=== PATIENT | male | born 1970 | race African-American/Black ===

== ENCOUNTER 2021-12-10 10:01 | Inpatient (IN) | payer OTHER ==
[2021-12-09 19:09] VITALS: BMI 32.0
[2021-12-09] MEDS: diazePAM 5 MG TABLET PO SCH (23:17)
[2021-12-09] MEDS: THIAMINE HCL 100 MG TABLET (FP) PO SCH (23:17)
[2021-12-10] MEDS: diazePAM 5 MG TABLET PO SCH ×4 (06:27→22:23)
[~2021-12-10 10:01] MED LIST: ACETAMINOPHEN 325 MG TABLET (FP) PO PRN; BENZOCAINE/MENTHOL (CHLORASEPTIC ) LOZENGE MM PRN; BISMUTH SUBSALICYLATE 524 MG/30 ML PO PRN; DICYCLOMINE HCL 10 MG CAPSULE PO PRN; IBUPROFEN 400 MG TABLET (FP) PO PRN; LOPERAMIDE HCL 2 MG CAPSULE PO PRN; MAG HYDROX/AL HYDROX/SIMETH 30 ML UNIT-DOSE CUP PO PRN; MAGNESIUM CITRATE 300 ML BOTTLE PO PRN; MAGNESIUM HYDROX 2400MG/30ML ORAL SUSPENSION 30 ML CUP PO PRN; ONDANSETRON *ODT* 4 MG TABLET SL PRN; diazePAM 5 MG TABLET ONE; diazePAM 5 MG TABLET PO ONE; diazePAM 5 MG TABLET PO PRN
[2021-12-10 11:10] LABS: ALBUMIN 3.3 g/dl (3.4-5.0); BLOOD UREA NITROGEN 12.9 mg/dL (7-18); CALCIUM 9.2 mg/dL (8.5-10.1)
[2021-12-10 11:13] LABS: CREATININE 1.2 mg/dL (0.55-1.3)
[2021-12-10 11:14] LABS: TOT PROT 6.6 g/dl (6.4-8.2)
[2021-12-10 11:15] LABS: BILIRUBIN,TOTAL 0.5 mg/dL (0.2-1); HEMATOCRIT 41.2 % (35.4-49); HEMOGLOBIN 13.7 GM/dL (11.7-16.9); MCH 25.7 pg (25.7-33.7); MCHC 33.4 g/dl (32.0-35.9); MEAN CELL VOLUME 76.9 fl (80-96); MEAN PLT VOLUME 8.1 fl (7.5-11.1); PLATELET COUNT 128 10^3/uL (134-434); RBC 5.36 M/mm3 (4.00-5.60); RDW 14.4 % (11.9-15.9); WHITE BLOOD COUNT 2.1 K/mm3 (4.0-10.0)
[2021-12-10] MEDS: FAMOTIDINE 20 MG TABLET PO SCH (12:11)
[2021-12-10] MEDS: amLODIPine BESYLATE 10 MG TABLET (FP) PO SCH (12:11)
[2021-12-10] MEDS: GABAPENTIN 300 MG CAPSULE PO SCH (12:12)
[2021-12-10] MEDS: SULFAMETHOXAZOLE/TRIMETHOPRIM 800MG/160MG D.S. TABLET PO SCH (12:12)
[2021-12-10] MEDS: APIXABAN 5 MG TABLET PO SCH ×2 (12:12→22:24)
[2021-12-10] MEDS: BICTEGRAV/EMTRICIT/TENOFOV (BIKTARVY) 50-200-25 MG TABLET PO SCH (12:12)
[2021-12-10] MEDS: PRENATAL VITAMINS W/ FOLIC ACID TABLET (FP) PO SCH (12:13)
[2021-12-10] MEDS: FENOFIBRIC ACID 135 MG CAP PO SCH (13:59)
[2021-12-10] MEDS: predniSONE 5 MG TABLET (UD) PO SCH (13:59)
[2021-12-10] MEDS ORDERED: POTASSIUM CHLORIDE TABS 20 MEQ TABLET.ER (FP) PO ONE (16:49)
[2021-12-10] MEDS: THIAMINE HCL 100 MG TABLET (FP) PO SCH (22:22)
[2021-12-10] MEDS: MELATONIN 5 MG TABLETS PO PRN (22:22)
[2021-12-10] MEDS: hydrOXYzine PAMOATE 25 MG CAPSULE (FP) PO PRN (22:26)
[2021-12-11] MEDS: LEVOTHYROXINE NA 100 MCG TABLET (FP) PO SCH (06:13)
[2021-12-11] MEDS: diazePAM 5 MG TABLET PO SCH ×3 (06:13→22:19)
[2021-12-11] MEDS: BICTEGRAV/EMTRICIT/TENOFOV (BIKTARVY) 50-200-25 MG TABLET PO SCH (10:44)
[2021-12-11] MEDS: FAMOTIDINE 20 MG TABLET PO SCH (10:44)
[2021-12-11] MEDS: APIXABAN 5 MG TABLET PO SCH ×2 (10:44→22:19)
[2021-12-11] MEDS: PRENATAL VITAMINS W/ FOLIC ACID TABLET (FP) PO SCH (10:44)
[2021-12-11] MEDS: SULFAMETHOXAZOLE/TRIMETHOPRIM 800MG/160MG D.S. TABLET PO SCH (10:44)
[2021-12-11] MEDS: amLODIPine BESYLATE 10 MG TABLET (FP) PO SCH (10:45)
[2021-12-11] MEDS: FENOFIBRIC ACID 135 MG CAP PO SCH (10:45)
[2021-12-11] MEDS: predniSONE 5 MG TABLET (UD) PO SCH (10:45)
[2021-12-11] MEDS: GABAPENTIN 300 MG CAPSULE PO SCH (11:23)
[2021-12-11] MEDS ORDERED: POTASSIUM CHLORIDE ORAL LIQUID 20 MEQ/15 ML PO ONE (12:21)
[2021-12-11] MEDS: THIAMINE HCL 100 MG TABLET (FP) PO SCH (22:18)
[2021-12-11] MEDS: POTASSIUM CHLORIDE ORAL LIQUID 20 MEQ/15 ML PO SCH (22:19)
[2021-12-11] MEDS: MELATONIN 5 MG TABLETS PO PRN (22:20)
[2021-12-11] MEDS: hydrOXYzine PAMOATE 25 MG CAPSULE (FP) PO PRN (22:20)
[2021-12-12] MEDS: LEVOTHYROXINE NA 100 MCG TABLET (FP) PO SCH (05:16)
[2021-12-12] MEDS: diazePAM 5 MG TABLET PO SCH ×2 (05:16→17:08)
[2021-12-12] MEDS: FAMOTIDINE 20 MG TABLET PO SCH (10:22)
[2021-12-12] MEDS: POTASSIUM CHLORIDE ORAL LIQUID 20 MEQ/15 ML PO SCH ×2 (10:22→23:11)
[2021-12-12] MEDS: PRENATAL VITAMINS W/ FOLIC ACID TABLET (FP) PO SCH (10:22)
[2021-12-12] MEDS: predniSONE 5 MG TABLET (UD) PO SCH (10:22)
[2021-12-12] MEDS: BICTEGRAV/EMTRICIT/TENOFOV (BIKTARVY) 50-200-25 MG TABLET PO SCH (10:22)
[2021-12-12] MEDS: GABAPENTIN 300 MG CAPSULE PO SCH (10:22)
[2021-12-12] MEDS: APIXABAN 5 MG TABLET PO SCH ×2 (10:22→22:29)
[2021-12-12] MEDS: amLODIPine BESYLATE 10 MG TABLET (FP) PO SCH (10:22)
[2021-12-12] MEDS: SULFAMETHOXAZOLE/TRIMETHOPRIM 800MG/160MG D.S. TABLET PO SCH (10:22)
[2021-12-12] MEDS: hydrOXYzine PAMOATE 25 MG CAPSULE (FP) PO PRN (10:23)
[2021-12-12] MEDS: METHOCARBAMOL 500 MG TABLET PO PRN (10:23)
[2021-12-12] MEDS: FENOFIBRIC ACID 135 MG CAP PO SCH (10:23)
[2021-12-12] MEDS ORDERED: traZODone HCL 50 MG TABLET (FP) PO SCH (22:00)
[2021-12-12] MEDS ORDERED: QUEtiapine FUMARATE 50 MG TABLET PO SCH (22:00)
[2021-12-12] MEDS: THIAMINE HCL 100 MG TABLET (FP) PO SCH (22:30)
[2021-12-13] MEDS: LEVOTHYROXINE NA 100 MCG TABLET (FP) PO SCH (05:43)
[2021-12-13] MEDS ORDERED: diazePAM 5 MG TABLET PO ONE (06:00)
[2021-12-13 08:58] VITALS: BP 161/101; PULSE 110; TEMP 98
[2021-12-13] MEDS: APIXABAN 5 MG TABLET PO SCH (10:14)
[2021-12-13] MEDS: predniSONE 5 MG TABLET (UD) PO SCH (10:14)
[2021-12-13] MEDS: PRENATAL VITAMINS W/ FOLIC ACID TABLET (FP) PO SCH (10:14)
[2021-12-13] MEDS: hydrOXYzine PAMOATE 25 MG CAPSULE (FP) PO PRN (10:14)
[2021-12-13] MEDS: BICTEGRAV/EMTRICIT/TENOFOV (BIKTARVY) 50-200-25 MG TABLET PO SCH (10:14)
[2021-12-13] MEDS: amLODIPine BESYLATE 10 MG TABLET (FP) PO SCH (10:14)
[2021-12-13] MEDS: METHOCARBAMOL 500 MG TABLET PO PRN (10:14)
[2021-12-13] MEDS: GABAPENTIN 300 MG CAPSULE PO SCH (10:14)
[2021-12-13] MEDS: FAMOTIDINE 20 MG TABLET PO SCH (10:14)
[2021-12-13] MEDS: SULFAMETHOXAZOLE/TRIMETHOPRIM 800MG/160MG D.S. TABLET PO SCH (10:14)
[2021-12-13] MEDS: FENOFIBRIC ACID 135 MG CAP PO SCH (10:16)
== END 2021-12-13 11:35 | disposition other institution (70) | DRG 773 ==
LOC: YASAS 10:01 → Y6N 10:03
PROVIDERS: ADMIT Allergy & Immunology; ATTEND Surgery
PROC: HZ2ZZZZ Detoxification Services for Substance Abuse Treatment (ICD-10-PCS; principal; 2021-12-10)
DX: F13.20 Sedative, hypnotic or anxiolytic dependence, uncomplicated (principal); F14.20 Cocaine dependence, uncomplicated; F11.10 Opioid abuse, uncomplicated; F17.210 Nicotine dependence, cigarettes, uncomplicated; F31.9 Bipolar disorder, unspecified; F19.282 Other psychoactive substance dependence with psychoactive substance-induced sleep disorder; Z21 Asymptomatic human immunodeficiency virus [HIV] infection status; E78.5 Hyperlipidemia, unspecified; J45.909 Unspecified asthma, uncomplicated; K21.9 Gastro-esophageal reflux disease without esophagitis; E03.9 Hypothyroidism, unspecified; G62.9 Polyneuropathy, unspecified; N40.0 Benign prostatic hyperplasia without lower urinary tract symptoms; Z87.442 Personal history of urinary calculi; Z86.718 Personal history of other venous thrombosis and embolism; Z79.01 Long term (current) use of anticoagulants; Z91.51 Personal history of suicidal behavior
CPT/HCPCS: 36415; 80053; 82947; 84132; 84443; 85027; 86780; C9803-CS; U0003; U0005

== ENCOUNTER 2021-12-13 11:26 | Inpatient (IN) | payer OTHER ==
[2021-12-13] MEDS ORDERED: ACETAMINOPHEN 325 MG TABLET (FP) PO PRN (12:54)
[2021-12-13] MEDS ORDERED: BENZOCAINE/MENTHOL (CHLORASEPTIC ) LOZENGE MM PRN (12:54)
[2021-12-13] MEDS ORDERED: MAGNESIUM HYDROX 2400MG/30ML ORAL SUSPENSION 30 ML CUP PO PRN (12:54)
[2021-12-13] MEDS ORDERED: P-EPHED 60MG/TRIPROLIDI 2.5MG TABLET PO PRN (12:54)
[2021-12-13] MEDS ORDERED: guaiFENesin 200 MG/10 ML 10 ML UNIT-DOSE CUPS PO PRN (12:54)
[2021-12-13] MEDS ORDERED: MAGNESIUM CITRATE 300 ML BOTTLE PO PRN (12:54)
[2021-12-13] MEDS ORDERED: IBUPROFEN 400 MG TABLET (FP) PO PRN (12:54)
[2021-12-13] MEDS ORDERED: hydrOXYzine PAMOATE 25 MG CAPSULE (FP) PO PRN (12:54)
[2021-12-13] MEDS ORDERED: LOPERAMIDE HCL 2 MG CAPSULE PO PRN (12:54)
[2021-12-13] MEDS ORDERED: MAG HYDROX/AL HYDROX/SIMETH 30 ML UNIT-DOSE CUP PO PRN (12:54)
[2021-12-13] MEDS: MELATONIN 5 MG TABLETS PO SCH (21:37)
[2021-12-13] MEDS: THIAMINE HCL 100 MG TABLET (FP) PO SCH (21:37)
[2021-12-13] MEDS: APIXABAN 5 MG TABLET PO SCH (21:38)
[2021-12-13] MEDS: QUEtiapine FUMARATE 50 MG TABLET PO SCH (21:38)
[2021-12-13] MEDS: NICOTINE 10 MG CARTRIDGE (INHALER) IH PRN (21:39)
[2021-12-13] MEDS ORDERED: traZODone HCL 50 MG TABLET (FP) PO SCH (22:00)
[2021-12-14] MEDS: LEVOTHYROXINE NA 100 MCG TABLET (FP) PO SCH (06:21)
[2021-12-14] MEDS: BICTEGRAV/EMTRICIT/TENOFOV (BIKTARVY) 50-200-25 MG TABLET PO SCH (07:09)
[2021-12-14] MEDS: PRENATAL VITAMINS W/ FOLIC ACID TABLET (FP) PO SCH (10:24)
[2021-12-14] MEDS: GABAPENTIN 300 MG CAPSULE PO SCH (10:25)
[2021-12-14] MEDS: APIXABAN 5 MG TABLET PO SCH ×2 (10:25→21:24)
[2021-12-14] MEDS: SULFAMETHOXAZOLE/TRIMETHOPRIM 800MG/160MG D.S. TABLET PO SCH (10:25)
[2021-12-14] MEDS: amLODIPine BESYLATE 5 MG TABLET (FP) PO SCH (10:25)
[2021-12-14] MEDS: FAMOTIDINE 20 MG TABLET PO SCH (10:25)
[2021-12-14] MEDS: predniSONE 5 MG TABLET (UD) PO SCH (10:27)
[2021-12-14] MEDS: FENOFIBRIC ACID 135 MG CAP PO SCH (10:27)
[2021-12-14] MEDS: NICOTINE 7 MG/24 HOURS TOPICAL PATCH TD SCH (10:28)
[2021-12-14 13:52] LABS: BASO % 0.5 % (0-2.0); EOS % 2.3 % (0-4.5); HEMATOCRIT 42.4 % (35.4-49); HEMOGLOBIN 13.9 GM/dL (11.7-16.9); LYMPH % 14.5 % (8-40); MCH 25.5 pg (25.7-33.7); MCHC 32.8 g/dl (32.0-35.9); MEAN CELL VOLUME 77.7 fl (80-96); MEAN PLT VOLUME 8.9 fl (7.5-11.1); MONO % 7.6 % (3.8-10.2); NEUT % 75.1 % (42.8-82.8); PLATELET COUNT 131 10^3/uL (134-434); RBC 5.46 M/mm3 (4.00-5.60); RDW 14.4 % (11.9-15.9); WHITE BLOOD COUNT 5.1 K/mm3 (4.0-10.0)
[2021-12-14] MEDS ORDERED: cloNIDine HCL 0.1 MG TABLET PO PRN (14:54)
[2021-12-14] MEDS: MELATONIN 5 MG TABLETS PO SCH (21:23)
[2021-12-14] MEDS: THIAMINE HCL 100 MG TABLET (FP) PO SCH (21:23)
[2021-12-14] MEDS: QUEtiapine FUMARATE 50 MG TABLET PO SCH (21:24)
[2021-12-15] MEDS: LEVOTHYROXINE NA 100 MCG TABLET (FP) PO SCH (06:19)
[2021-12-15] MEDS: BICTEGRAV/EMTRICIT/TENOFOV (BIKTARVY) 50-200-25 MG TABLET PO SCH (07:16)
[2021-12-15] MEDS: GABAPENTIN 300 MG CAPSULE PO SCH (09:52)
[2021-12-15] MEDS: FAMOTIDINE 20 MG TABLET PO SCH (09:52)
[2021-12-15] MEDS: FENOFIBRIC ACID 135 MG CAP PO SCH (09:52)
[2021-12-15] MEDS: APIXABAN 5 MG TABLET PO SCH ×2 (09:52→21:19)
[2021-12-15] MEDS: PRENATAL VITAMINS W/ FOLIC ACID TABLET (FP) PO SCH (09:52)
[2021-12-15] MEDS: amLODIPine BESYLATE 5 MG TABLET (FP) PO SCH (09:52)
[2021-12-15] MEDS: predniSONE 5 MG TABLET (UD) PO SCH (09:53)
[2021-12-15] MEDS: SULFAMETHOXAZOLE/TRIMETHOPRIM 800MG/160MG D.S. TABLET PO SCH (09:53)
[2021-12-15] MEDS: NICOTINE 7 MG/24 HOURS TOPICAL PATCH TD SCH (09:55)
[2021-12-15] MEDS: MELATONIN 5 MG TABLETS PO SCH (21:18)
[2021-12-15] MEDS: THIAMINE HCL 100 MG TABLET (FP) PO SCH (21:18)
[2021-12-15] MEDS: QUEtiapine FUMARATE 50 MG TABLET PO SCH (21:19)
[2021-12-16] MEDS: LEVOTHYROXINE NA 100 MCG TABLET (FP) PO SCH (06:09)
[2021-12-16] MEDS: BICTEGRAV/EMTRICIT/TENOFOV (BIKTARVY) 50-200-25 MG TABLET PO SCH (08:00)
[2021-12-16] MEDS: NICOTINE 10 MG CARTRIDGE (INHALER) IH PRN (10:06)
[2021-12-16] MEDS: GABAPENTIN 300 MG CAPSULE PO SCH (10:06)
[2021-12-16] MEDS: amLODIPine BESYLATE 5 MG TABLET (FP) PO SCH (10:07)
[2021-12-16] MEDS: FAMOTIDINE 20 MG TABLET PO SCH (10:07)
[2021-12-16] MEDS: NICOTINE 7 MG/24 HOURS TOPICAL PATCH TD SCH (10:07)
[2021-12-16] MEDS: APIXABAN 5 MG TABLET PO SCH ×2 (10:07→21:38)
[2021-12-16] MEDS: SULFAMETHOXAZOLE/TRIMETHOPRIM 800MG/160MG D.S. TABLET PO SCH (10:07)
[2021-12-16] MEDS: predniSONE 5 MG TABLET (UD) PO SCH (10:07)
[2021-12-16] MEDS: PRENATAL VITAMINS W/ FOLIC ACID TABLET (FP) PO SCH (10:08)
[2021-12-16] MEDS: FENOFIBRIC ACID 135 MG CAP PO SCH (10:08)
[2021-12-16] MEDS: QUEtiapine FUMARATE 50 MG TABLET PO SCH (21:38)
[2021-12-16] MEDS: THIAMINE HCL 100 MG TABLET (FP) PO SCH (21:38)
[2021-12-16] MEDS: MELATONIN 5 MG TABLETS PO SCH (21:39)
[2021-12-17] MEDS: LEVOTHYROXINE NA 100 MCG TABLET (FP) PO SCH (06:49)
[2021-12-17] MEDS: BICTEGRAV/EMTRICIT/TENOFOV (BIKTARVY) 50-200-25 MG TABLET PO SCH (10:25)
[2021-12-17] MEDS: SULFAMETHOXAZOLE/TRIMETHOPRIM 800MG/160MG D.S. TABLET PO SCH (10:26)
[2021-12-17] MEDS: predniSONE 5 MG TABLET (UD) PO SCH (10:26)
[2021-12-17] MEDS: FAMOTIDINE 20 MG TABLET PO SCH (10:26)
[2021-12-17] MEDS: GABAPENTIN 300 MG CAPSULE PO SCH (10:26)
[2021-12-17] MEDS: PRENATAL VITAMINS W/ FOLIC ACID TABLET (FP) PO SCH (10:26)
[2021-12-17] MEDS: APIXABAN 5 MG TABLET PO SCH ×2 (10:26→22:32)
[2021-12-17] MEDS: NICOTINE 7 MG/24 HOURS TOPICAL PATCH TD SCH (10:27)
[2021-12-17] MEDS: amLODIPine BESYLATE 5 MG TABLET (FP) PO SCH (10:27)
[2021-12-17] MEDS: FENOFIBRIC ACID 135 MG CAP PO SCH (10:28)
[2021-12-17] MEDS: QUEtiapine FUMARATE 50 MG TABLET PO SCH (22:32)
[2021-12-17] MEDS: MELATONIN 5 MG TABLETS PO SCH (22:34)
[2021-12-17] MEDS: THIAMINE HCL 100 MG TABLET (FP) PO SCH (22:35)
[2021-12-18] MEDS: LEVOTHYROXINE NA 100 MCG TABLET (FP) PO SCH (06:33)
[2021-12-18] MEDS: BICTEGRAV/EMTRICIT/TENOFOV (BIKTARVY) 50-200-25 MG TABLET PO SCH (07:08)
[2021-12-18 07:55] VITALS: TEMP 97.3
[2021-12-18] MEDS: SULFAMETHOXAZOLE/TRIMETHOPRIM 800MG/160MG D.S. TABLET PO SCH (09:09)
[2021-12-18] MEDS: GABAPENTIN 300 MG CAPSULE PO SCH (09:09)
[2021-12-18] MEDS: predniSONE 5 MG TABLET (UD) PO SCH (09:09)
[2021-12-18] MEDS: FAMOTIDINE 20 MG TABLET PO SCH (09:10)
[2021-12-18] MEDS: PRENATAL VITAMINS W/ FOLIC ACID TABLET (FP) PO SCH (09:10)
[2021-12-18] MEDS: NICOTINE 7 MG/24 HOURS TOPICAL PATCH TD SCH (09:10)
[2021-12-18] MEDS: amLODIPine BESYLATE 5 MG TABLET (FP) PO SCH (09:10)
[2021-12-18] MEDS: FENOFIBRIC ACID 135 MG CAP PO SCH (09:11)
[2021-12-18 09:23] VITALS: BP 149/93; PULSE 97
[2021-12-18] MEDS: APIXABAN 5 MG TABLET PO SCH (10:08)
== END 2021-12-18 10:55 | disposition home or self-care (01) | DRG 772 ==
LOC: YASAS 11:26 → Y3E 11:27
PROVIDERS: ADMIT Allergy & Immunology; ATTEND Psychiatry & Neurology Pain Medicine
PROC: HZ42ZZZ Group Counseling for Substance Abuse Treatment, Cognitive-Behavioral (ICD-10-PCS; principal; 2021-12-13)
DX: F11.20 Opioid dependence, uncomplicated (principal); F14.20 Cocaine dependence, uncomplicated; F13.20 Sedative, hypnotic or anxiolytic dependence, uncomplicated; F17.210 Nicotine dependence, cigarettes, uncomplicated; F31.9 Bipolar disorder, unspecified; Z21 Asymptomatic human immunodeficiency virus [HIV] infection status; G62.9 Polyneuropathy, unspecified; D86.9 Sarcoidosis, unspecified; E78.5 Hyperlipidemia, unspecified; E03.9 Hypothyroidism, unspecified; I10 Essential (primary) hypertension; K21.9 Gastro-esophageal reflux disease without esophagitis; N40.0 Benign prostatic hyperplasia without lower urinary tract symptoms; W01.0XXA Fall on same level from slipping, tripping and stumbling without subsequent striking against object, initial encounter; Y92.232 Corridor of hospital as the place of occurrence of the external cause; Z86.718 Personal history of other venous thrombosis and embolism; Z79.01 Long term (current) use of anticoagulants
CPT/HCPCS: 36415; 82962; 85025

== ENCOUNTER 2021-12-17 18:08 | Emergency (ER) | payer OTHER ==
[2021-12-17 18:21] VITALS: TEMP 97.9; BMI 34.0
[2021-12-17] MEDS ORDERED: ACETAMINOPHEN 500 MG TABLET (FP) PO ONE (18:38)
[2021-12-17] MEDS ORDERED: CYCLOBENZAPRINE HCL 10 MG TABLET (FP) PO ONE (18:38)
[2021-12-17] MEDS ORDERED: ACETAMINOPHEN 325 MG TABLET (FP) ONE (18:44)
[2021-12-17] MEDS ORDERED: CYCLOBENZAPRINE HCL 5 MG TABLET ONE (18:45)
[2021-12-17 19:35] VITALS: BP 147/96; PULSE 91
[2021-12-17] MEDS ORDERED: LIDOCAINE 5% TOPICAL PATCH TP ONE (19:38)
[2021-12-17] MEDS ORDERED: LIDOCAINE 5% TOPICAL PATCH ONE (19:40)
[2021-12-18] MEDS ORDERED: LIDOCAINE PATCH REMOVAL MC SCH (08:00)
== END 2021-12-17 21:55 | disposition home or self-care (01) ==
LOC: JER 18:08
DX: M25.551 Pain in right hip (principal); W01.0XXA Fall on same level from slipping, tripping and stumbling without subsequent striking against object, initial encounter
CPT/HCPCS: 70450-TC; 99284-25

== ENCOUNTER 2022-02-07 09:23 | Inpatient (IN) | payer OTHER ==
[2022-02-07 10:01] VITALS: BMI 31.6
[2022-02-07] MEDS ORDERED: BENZOCAINE/MENTHOL (CHLORASEPTIC ) LOZENGE MM PRN (10:44)
[2022-02-07] MEDS ORDERED: LOPERAMIDE HCL 2 MG CAPSULE PO PRN (10:44)
[2022-02-07] MEDS ORDERED: ONDANSETRON *ODT* 4 MG TABLET SL PRN (10:44)
[2022-02-07] MEDS ORDERED: MAGNESIUM CITRATE 300 ML BOTTLE PO PRN (10:44)
[2022-02-07] MEDS ORDERED: BISMUTH SUBSALICYLATE 524 MG/30 ML PO PRN (10:44)
[2022-02-07] MEDS ORDERED: NALOXONE HCL (KLOXXADO) 8 MG SPRAY NS PRN (10:44)
[2022-02-07] MEDS ORDERED: chlordiazePOXIDE HCL 25 MG CAPSULE PO PRN (10:44)
[2022-02-07] MEDS ORDERED: IBUPROFEN 400 MG TABLET (FP) PO PRN (10:44)
[2022-02-07] MEDS ORDERED: NICOTINE 10 MG CARTRIDGE (INHALER) IH PRN (10:44)
[2022-02-07] MEDS ORDERED: DICYCLOMINE HCL 10 MG CAPSULE PO PRN (10:44)
[2022-02-07] MEDS ORDERED: MAG HYDROX/AL HYDROX/SIMETH 30 ML UNIT-DOSE CUP PO PRN (10:44)
[2022-02-07] MEDS ORDERED: MAGNESIUM HYDROX 2400MG/30ML ORAL SUSPENSION 30 ML CUP PO PRN (10:44)
[2022-02-07] MEDS ORDERED: ACETAMINOPHEN 325 MG TABLET (FP) PO PRN ×2 (10:44)
[2022-02-07] MEDS ORDERED: METHOCARBAMOL 500 MG TABLET PO PRN (10:44)
[2022-02-07] MEDS ORDERED: IBUPROFEN 600 MG TABLET (FP) PO PRN (10:44)
[2022-02-07] MEDS ORDERED: LEVOTHYROXINE NA 100 MCG TABLET (FP) PO SCH (11:00)
[2022-02-07] MEDS: PRENATAL VITAMINS W/ FOLIC ACID TABLET (FP) PO SCH (12:49)
[2022-02-07] MEDS: APIXABAN 5 MG TABLET PO SCH ×2 (12:49→22:29)
[2022-02-07] MEDS: SULFAMETHOXAZOLE/TRIMETHOPRIM 800MG/160MG D.S. TABLET PO SCH (12:49)
[2022-02-07] MEDS: FAMOTIDINE 20 MG TABLET PO SCH (12:50)
[2022-02-07] MEDS: BICTEGRAV/EMTRICIT/TENOFOV (BIKTARVY) 50-200-25 MG TABLET PO SCH (12:55)
[2022-02-07] MEDS: amLODIPine BESYLATE 10 MG TABLET (FP) PO SCH (12:57)
[2022-02-07] MEDS ORDERED: LEVOTHYROXINE NA 25 MCG TABLET (FP) PO ONE (13:41)
[2022-02-07] MEDS: predniSONE 5 MG TABLET (UD) PO SCH (14:57)
[2022-02-07] MEDS: hydrOXYzine PAMOATE 25 MG CAPSULE (FP) PO SCH ×3 (15:00→22:30)
[2022-02-07 15:21] LABS: HEMATOCRIT 40.4 % (35.4-49); HEMOGLOBIN 13.2 GM/dL (11.7-16.9); MCHC 32.7 g/dl (32.0-35.9); MEAN CELL VOLUME 76.4 fl (80-96); MEAN PLT VOLUME 8.8 fl (7.5-11.1); PLATELET COUNT 138 10^3/uL (134-434); RBC 5.29 M/mm3 (4.00-5.60); RDW 14.2 % (11.9-15.9); WHITE BLOOD COUNT 6.3 K/mm3 (4.0-10.0)
[2022-02-07 15:29] LABS: CALCIUM 8.6 mg/dL (8.5-10.1)
[2022-02-07 15:30] LABS: ALBUMIN 3.4 g/dl (3.4-5.0); BLOOD UREA NITROGEN 15.3 mg/dL (7-18)
[2022-02-07 15:34] LABS: CREATININE 1.4 mg/dL (0.55-1.3)
[2022-02-07 15:35] LABS: BILIRUBIN,TOTAL 0.9 mg/dL (0.2-1)
[2022-02-07 15:37] LABS: TOT PROT 7.1 g/dl (6.4-8.2)
[2022-02-07] MEDS: chlordiazePOXIDE HCL 25 MG CAPSULE PO SCH ×2 (18:07→22:29)
[2022-02-07] MEDS ORDERED: MELATONIN 5 MG TABLETS PO SCH (22:00)
[2022-02-07] MEDS: QUEtiapine FUMARATE 50 MG TABLET PO SCH (22:29)
[2022-02-07] MEDS: THIAMINE HCL 100 MG TABLET (FP) PO SCH (22:29)
[2022-02-08] MEDS: chlordiazePOXIDE HCL 25 MG CAPSULE PO SCH ×5 (06:40→22:05)
[2022-02-08] MEDS: hydrOXYzine PAMOATE 25 MG CAPSULE (FP) PO SCH ×5 (07:36→22:05)
[2022-02-08] MEDS: LEVOTHYROXINE NA 25 MCG TABLET (FP) PO SCH (07:39)
[2022-02-08] MEDS: BICTEGRAV/EMTRICIT/TENOFOV (BIKTARVY) 50-200-25 MG TABLET PO SCH (07:40)
[2022-02-08] MEDS: APIXABAN 5 MG TABLET PO SCH ×2 (11:13→22:05)
[2022-02-08] MEDS: PRENATAL VITAMINS W/ FOLIC ACID TABLET (FP) PO SCH (11:13)
[2022-02-08] MEDS: FAMOTIDINE 20 MG TABLET PO SCH (11:13)
[2022-02-08] MEDS: SULFAMETHOXAZOLE/TRIMETHOPRIM 800MG/160MG D.S. TABLET PO SCH (11:14)
[2022-02-08] MEDS: amLODIPine BESYLATE 10 MG TABLET (FP) PO SCH (11:14)
[2022-02-08] MEDS: predniSONE 5 MG TABLET (UD) PO SCH (11:14)
[2022-02-08] MEDS: QUEtiapine FUMARATE 50 MG TABLET PO SCH (22:04)
[2022-02-08] MEDS: THIAMINE HCL 100 MG TABLET (FP) PO SCH (22:05)
[2022-02-09] MEDS: LEVOTHYROXINE NA 25 MCG TABLET (FP) PO SCH (06:10)
[2022-02-09] MEDS: chlordiazePOXIDE HCL 25 MG CAPSULE PO SCH ×4 (06:10→22:11)
[2022-02-09] MEDS: hydrOXYzine PAMOATE 25 MG CAPSULE (FP) PO SCH ×5 (06:10→22:11)
[2022-02-09 10:02] LABS: CREATININE 1.1 mg/dL (0.55-1.3)
[2022-02-09] MEDS: APIXABAN 5 MG TABLET PO SCH ×2 (10:18→22:11)
[2022-02-09] MEDS: FAMOTIDINE 20 MG TABLET PO SCH (10:18)
[2022-02-09] MEDS: amLODIPine BESYLATE 10 MG TABLET (FP) PO SCH (10:19)
[2022-02-09] MEDS: SULFAMETHOXAZOLE/TRIMETHOPRIM 800MG/160MG D.S. TABLET PO SCH (10:19)
[2022-02-09] MEDS: predniSONE 5 MG TABLET (UD) PO SCH (10:19)
[2022-02-09] MEDS: BICTEGRAV/EMTRICIT/TENOFOV (BIKTARVY) 50-200-25 MG TABLET PO SCH (10:22)
[2022-02-09] MEDS: PRENATAL VITAMINS W/ FOLIC ACID TABLET (FP) PO SCH (10:23)
[2022-02-09] MEDS: QUEtiapine FUMARATE 50 MG TABLET PO SCH (22:11)
[2022-02-09] MEDS: THIAMINE HCL 100 MG TABLET (FP) PO SCH (22:11)
[2022-02-10] MEDS ORDERED: chlordiazePOXIDE HCL 10 MG CAPSULE PO PRN
[2022-02-10] MEDS: hydrOXYzine PAMOATE 25 MG CAPSULE (FP) PO SCH ×5 (05:23→22:26)
[2022-02-10] MEDS: chlordiazePOXIDE HCL 10 MG CAPSULE PO SCH ×4 (05:23→22:23)
[2022-02-10] MEDS: LEVOTHYROXINE NA 25 MCG TABLET (FP) PO SCH (07:47)
[2022-02-10] MEDS: predniSONE 5 MG TABLET (UD) PO SCH (10:18)
[2022-02-10] MEDS: APIXABAN 5 MG TABLET PO SCH ×2 (10:18→22:23)
[2022-02-10] MEDS: BICTEGRAV/EMTRICIT/TENOFOV (BIKTARVY) 50-200-25 MG TABLET PO SCH (10:18)
[2022-02-10] MEDS: SULFAMETHOXAZOLE/TRIMETHOPRIM 800MG/160MG D.S. TABLET PO SCH (10:18)
[2022-02-10] MEDS: FAMOTIDINE 20 MG TABLET PO SCH (10:18)
[2022-02-10] MEDS: amLODIPine BESYLATE 10 MG TABLET (FP) PO SCH (10:18)
[2022-02-10] MEDS: PRENATAL VITAMINS W/ FOLIC ACID TABLET (FP) PO SCH (10:19)
[2022-02-10] MEDS: THIAMINE HCL 100 MG TABLET (FP) PO SCH (22:23)
[2022-02-10] MEDS: QUEtiapine FUMARATE 50 MG TABLET PO SCH (22:23)
[2022-02-11] MEDS: hydrOXYzine PAMOATE 25 MG CAPSULE (FP) PO SCH ×5 (05:23→22:12)
[2022-02-11] MEDS: chlordiazePOXIDE HCL 10 MG CAPSULE PO SCH ×2 (05:23→17:53)
[2022-02-11] MEDS: BICTEGRAV/EMTRICIT/TENOFOV (BIKTARVY) 50-200-25 MG TABLET PO SCH (08:06)
[2022-02-11] MEDS: LEVOTHYROXINE NA 25 MCG TABLET (FP) PO SCH (08:06)
[2022-02-11] MEDS: SULFAMETHOXAZOLE/TRIMETHOPRIM 800MG/160MG D.S. TABLET PO SCH (10:24)
[2022-02-11] MEDS: FAMOTIDINE 20 MG TABLET PO SCH (10:24)
[2022-02-11] MEDS: amLODIPine BESYLATE 10 MG TABLET (FP) PO SCH (10:24)
[2022-02-11] MEDS: predniSONE 5 MG TABLET (UD) PO SCH (10:25)
[2022-02-11] MEDS: PRENATAL VITAMINS W/ FOLIC ACID TABLET (FP) PO SCH (10:25)
[2022-02-11] MEDS: APIXABAN 5 MG TABLET PO SCH ×2 (10:25→22:12)
[2022-02-11] MEDS ORDERED: QUEtiapine FUMARATE 25 MG TABLET ONE (21:46)
[2022-02-11] MEDS: THIAMINE HCL 100 MG TABLET (FP) PO SCH (22:12)
[2022-02-11] MEDS: QUEtiapine FUMARATE 50 MG TABLET PO SCH (22:12)
[2022-02-12] MEDS ORDERED: chlordiazePOXIDE HCL 10 MG CAPSULE PO ONE (05:00)
[2022-02-12] MEDS: hydrOXYzine PAMOATE 25 MG CAPSULE (FP) PO SCH ×2 (05:29→10:31)
[2022-02-12] MEDS: LEVOTHYROXINE NA 25 MCG TABLET (FP) PO SCH (06:12)
[2022-02-12 09:21] VITALS: BP 162/83; PULSE 98; RESP 18; TEMP 97.4
[2022-02-12] MEDS: SULFAMETHOXAZOLE/TRIMETHOPRIM 800MG/160MG D.S. TABLET PO SCH (10:31)
[2022-02-12] MEDS: PRENATAL VITAMINS W/ FOLIC ACID TABLET (FP) PO SCH (10:31)
[2022-02-12] MEDS: FAMOTIDINE 20 MG TABLET PO SCH (10:31)
[2022-02-12] MEDS: predniSONE 5 MG TABLET (UD) PO SCH (10:31)
[2022-02-12] MEDS: BICTEGRAV/EMTRICIT/TENOFOV (BIKTARVY) 50-200-25 MG TABLET PO SCH (10:32)
[2022-02-12] MEDS: APIXABAN 5 MG TABLET PO SCH (11:39)
[2022-02-12] MEDS: amLODIPine BESYLATE 10 MG TABLET (FP) PO SCH (11:39)
== END 2022-02-12 12:16 | disposition home or self-care (01) | DRG 774 ==
LOC: YASAS 09:23 → SUATTDRO 09:23 → Y6N 11:30
PROVIDERS: ADMIT Allergy & Immunology; ATTEND Surgery
PROC: HZ2ZZZZ Detoxification Services for Substance Abuse Treatment (ICD-10-PCS; principal; 2022-02-07)
DX: F13.230 Sedative, hypnotic or anxiolytic dependence with withdrawal, uncomplicated (principal); F14.20 Cocaine dependence, uncomplicated; F17.210 Nicotine dependence, cigarettes, uncomplicated; F31.9 Bipolar disorder, unspecified; F19.24 Other psychoactive substance dependence with psychoactive substance-induced mood disorder; F19.282 Other psychoactive substance dependence with psychoactive substance-induced sleep disorder; I10 Essential (primary) hypertension; J45.909 Unspecified asthma, uncomplicated; K21.9 Gastro-esophageal reflux disease without esophagitis; Z21 Asymptomatic human immunodeficiency virus [HIV] infection status; E03.9 Hypothyroidism, unspecified; G62.9 Polyneuropathy, unspecified; D86.9 Sarcoidosis, unspecified; E78.5 Hyperlipidemia, unspecified; N40.0 Benign prostatic hyperplasia without lower urinary tract symptoms; Z28.310 Unvaccinated for COVID-19; Z91.51 Personal history of suicidal behavior; Z86.718 Personal history of other venous thrombosis and embolism; Z56.0 Unemployment, unspecified; Z59.01 Sheltered homelessness
CPT/HCPCS: 36415; 80053; 82565; 85027; 86780; 87811; 93005; 93010; C9803-CS; U0003; U0005

== ENCOUNTER 2022-03-21 10:09 | Inpatient (IN) | payer OTHER ==
[2022-03-21 10:52] VITALS: BMI 32.1
[2022-03-21] MEDS ORDERED: MAGNESIUM CITRATE 300 ML BOTTLE PO PRN (11:30)
[2022-03-21] MEDS ORDERED: BISMUTH SUBSALICYLATE 524 MG/30 ML PO PRN (11:30)
[2022-03-21] MEDS ORDERED: BUPRENORPHINE HCL 150 MCG, BUPRENORPHINE HCL 75 MCG BC PRN (11:30)
[2022-03-21] MEDS ORDERED: BENZOCAINE/MENTHOL (CHLORASEPTIC ) LOZENGE MM PRN (11:30)
[2022-03-21] MEDS ORDERED: IBUPROFEN 400 MG TABLET (FP) PO PRN (11:30)
[2022-03-21] MEDS ORDERED: IBUPROFEN 600 MG TABLET (FP) PO PRN (11:30)
[2022-03-21] MEDS ORDERED: LOPERAMIDE HCL 2 MG CAPSULE PO PRN (11:30)
[2022-03-21] MEDS ORDERED: diazePAM 5 MG TABLET PO PRN (11:30)
[2022-03-21] MEDS ORDERED: DICYCLOMINE HCL 10 MG CAPSULE PO PRN (11:30)
[2022-03-21] MEDS ORDERED: MAG HYDROX/AL HYDROX/SIMETH 30 ML UNIT-DOSE CUP PO PRN (11:30)
[2022-03-21] MEDS ORDERED: MAGNESIUM HYDROX 2400MG/30ML ORAL SUSPENSION 30 ML CUP PO PRN (11:30)
[2022-03-21] MEDS ORDERED: ONDANSETRON *ODT* 4 MG TABLET SL PRN (11:30)
[2022-03-21] MEDS ORDERED: ACETAMINOPHEN 325 MG TABLET (FP) PO PRN ×2 (11:30)
[2022-03-21] MEDS ORDERED: NALOXONE HCL (KLOXXADO) 8 MG SPRAY NS PRN (11:30)
[2022-03-21] MEDS ORDERED: BUPRENORPHINE HCL 150 MCG, BUPRENORPHINE HCL 75 MCG BC ONE (11:45)
[2022-03-21] MEDS ORDERED: cloNIDine HCL 0.1 MG TABLET PO ONE (12:00)
[2022-03-21] MEDS ORDERED: cloNIDine HCL 0.1 MG TABLET PO PRN (15:31)
[2022-03-21 17:00] LABS: CALCIUM 9.5 mg/dL (8.5-10.1)
[2022-03-21 17:01] LABS: ALBUMIN 4.1 g/dl (3.4-5.0); BLOOD UREA NITROGEN 21.2 mg/dL (7-18)
[2022-03-21 17:04] LABS: CREATININE 1.8 mg/dL (0.55-1.3)
[2022-03-21 17:05] LABS: HEMATOCRIT 42.7 % (35.4-49); HEMOGLOBIN 14.2 GM/dL (11.7-16.9); MCH 25.3 pg (25.7-33.7); MCHC 33.2 g/dl (32.0-35.9); MEAN CELL VOLUME 76.2 fl (80-96); MEAN PLT VOLUME 8.4 fl (7.5-11.1); PLATELET COUNT 144 10^3/uL (134-434); RDW 14.9 % (11.9-15.9); WHITE BLOOD COUNT 5.3 K/mm3 (4.0-10.0)
[2022-03-21] MEDS: hydrOXYzine PAMOATE 25 MG CAPSULE (FP) PO SCH ×3 (17:56→21:48)
[2022-03-21] MEDS: NICOTINE 7 MG/24 HOURS TOPICAL PATCH TD SCH (17:56)
[2022-03-21] MEDS: PRENATAL VITAMINS W/ FOLIC ACID TABLET (FP) PO SCH (17:56)
[2022-03-21] MEDS: MELATONIN 5 MG TABLETS PO SCH (21:48)
[2022-03-21] MEDS: THIAMINE HCL 100 MG TABLET (FP) PO SCH (21:49)
[2022-03-21] MEDS: METHOCARBAMOL 500 MG TABLET PO PRN (21:49)
[2022-03-21] MEDS ORDERED: levETIRAcetam 500 MG TABLET (FP) PO ONE (22:20)
[2022-03-22] MEDS ORDERED: BUPRENORPHINE HCL 150 MCG, BUPRENORPHINE HCL 75 MCG BC PRN
[2022-03-22] MEDS: hydrOXYzine PAMOATE 25 MG CAPSULE (FP) PO SCH ×5 (05:43→22:25)
[2022-03-22] MEDS: BUPRENORPHINE HCL 150 MCG, BUPRENORPHINE HCL 75 MCG BC SCH ×2 (05:44→17:38)
[2022-03-22] MEDS: PRENATAL VITAMINS W/ FOLIC ACID TABLET (FP) PO SCH (10:26)
[2022-03-22] MEDS: NICOTINE 10 MG CARTRIDGE (INHALER) IH PRN (10:27)
[2022-03-22] MEDS: NICOTINE 7 MG/24 HOURS TOPICAL PATCH TD SCH (11:20)
[2022-03-22] MEDS: BICTEGRAV/EMTRICIT/TENOFOV (BIKTARVY) 50-200-25 MG TABLET PO SCH (12:57)
[2022-03-22] MEDS: SULFAMETHOXAZOLE/TRIMETHOPRIM 800MG/160MG D.S. TABLET PO SCH (12:57)
[2022-03-22] MEDS: LEVOTHYROXINE NA 25 MCG TABLET (FP) PO SCH (12:57)
[2022-03-22] MEDS: QUEtiapine FUMARATE 50 MG TABLET PO SCH (22:25)
[2022-03-22] MEDS: APIXABAN 5 MG TABLET PO SCH (22:25)
[2022-03-22] MEDS: MELATONIN 5 MG TABLETS PO SCH (22:25)
[2022-03-22] MEDS: levETIRAcetam 500 MG TABLET (FP) PO SCH (22:26)
[2022-03-22] MEDS: THIAMINE HCL 100 MG TABLET (FP) PO SCH (22:26)
[2022-03-22] MEDS: METHOCARBAMOL 500 MG TABLET PO PRN (22:26)
[2022-03-23] MEDS: LEVOTHYROXINE NA 25 MCG TABLET (FP) PO SCH (06:53)
[2022-03-23] MEDS: hydrOXYzine PAMOATE 25 MG CAPSULE (FP) PO SCH ×5 (06:53→22:02)
[2022-03-23] MEDS: BUPRENORPHINE HCL 450 MCG FILM BC SCH ×2 (07:39→17:51)
[2022-03-23] MEDS: SULFAMETHOXAZOLE/TRIMETHOPRIM 800MG/160MG D.S. TABLET PO SCH (10:43)
[2022-03-23] MEDS: levETIRAcetam 500 MG TABLET (FP) PO SCH ×2 (10:44→22:02)
[2022-03-23] MEDS: BICTEGRAV/EMTRICIT/TENOFOV (BIKTARVY) 50-200-25 MG TABLET PO SCH (10:44)
[2022-03-23] MEDS: APIXABAN 5 MG TABLET PO SCH ×2 (10:44→22:02)
[2022-03-23] MEDS: NICOTINE 7 MG/24 HOURS TOPICAL PATCH TD SCH (10:44)
[2022-03-23] MEDS: PRENATAL VITAMINS W/ FOLIC ACID TABLET (FP) PO SCH (10:44)
[2022-03-23] MEDS: METHOCARBAMOL 500 MG TABLET PO PRN (19:28)
[2022-03-23] MEDS: QUEtiapine FUMARATE 50 MG TABLET PO SCH (22:02)
[2022-03-23] MEDS: THIAMINE HCL 100 MG TABLET (FP) PO SCH (22:02)
[2022-03-23] MEDS: MELATONIN 5 MG TABLETS PO SCH (22:03)
[2022-03-23] MEDS: NICOTINE 10 MG CARTRIDGE (INHALER) IH PRN (22:21)
[2022-03-24] MEDS: hydrOXYzine PAMOATE 25 MG CAPSULE (FP) PO SCH ×5 (06:05→22:33)
[2022-03-24] MEDS: LEVOTHYROXINE NA 25 MCG TABLET (FP) PO SCH (06:05)
[2022-03-24] MEDS: BUPRENORPHINE/NALOXONE 4 MG/1 MG FILM PACKET SL SCH ×2 (06:05→17:57)
[2022-03-24] MEDS: levETIRAcetam 500 MG TABLET (FP) PO SCH ×2 (10:14→22:33)
[2022-03-24] MEDS: SULFAMETHOXAZOLE/TRIMETHOPRIM 800MG/160MG D.S. TABLET PO SCH (10:14)
[2022-03-24] MEDS: METHOCARBAMOL 500 MG TABLET PO PRN ×3 (10:14→22:35)
[2022-03-24] MEDS: PRENATAL VITAMINS W/ FOLIC ACID TABLET (FP) PO SCH (10:15)
[2022-03-24] MEDS: BICTEGRAV/EMTRICIT/TENOFOV (BIKTARVY) 50-200-25 MG TABLET PO SCH (10:15)
[2022-03-24] MEDS: NICOTINE 7 MG/24 HOURS TOPICAL PATCH TD SCH (10:15)
[2022-03-24] MEDS: APIXABAN 5 MG TABLET PO SCH ×2 (10:15→22:33)
[2022-03-24] MEDS: NICOTINE 10 MG CARTRIDGE (INHALER) IH PRN ×2 (15:31→22:36)
[2022-03-24 22:13] VITALS: RESP 18
[2022-03-24] MEDS: THIAMINE HCL 100 MG TABLET (FP) PO SCH (22:33)
[2022-03-24] MEDS: MELATONIN 5 MG TABLETS PO SCH (22:33)
[2022-03-24] MEDS: QUEtiapine FUMARATE 50 MG TABLET PO SCH (22:33)
[2022-03-25] MEDS: hydrOXYzine PAMOATE 25 MG CAPSULE (FP) PO SCH (05:32)
[2022-03-25] MEDS ORDERED: BUPRENORPHINE/NALOXONE 8 MG/2 MG FILM PACKET SL ONE (06:00)
[2022-03-25] MEDS: LEVOTHYROXINE NA 25 MCG TABLET (FP) PO SCH (08:26)
[2022-03-25] MEDS: BICTEGRAV/EMTRICIT/TENOFOV (BIKTARVY) 50-200-25 MG TABLET PO SCH (08:26)
[2022-03-25 09:14] VITALS: BP 128/87; PULSE 65; TEMP 97.3
== END 2022-03-25 09:34 | disposition home or self-care (01) | DRG 773 ==
LOC: YASAS 10:09 → Y3N 12:19
PROVIDERS: ADMIT Allergy & Immunology; ATTEND Family Medicine Addiction Medicine
PROC: HZ2ZZZZ Detoxification Services for Substance Abuse Treatment (ICD-10-PCS; principal; 2022-03-21)
DX: F11.23 Opioid dependence with withdrawal (principal); F14.20 Cocaine dependence, uncomplicated; F13.20 Sedative, hypnotic or anxiolytic dependence, uncomplicated; F10.10 Alcohol abuse, uncomplicated; F17.210 Nicotine dependence, cigarettes, uncomplicated; F19.282 Other psychoactive substance dependence with psychoactive substance-induced sleep disorder; F19.24 Other psychoactive substance dependence with psychoactive substance-induced mood disorder; Z21 Asymptomatic human immunodeficiency virus [HIV] infection status; E11.42 Type 2 diabetes mellitus with diabetic polyneuropathy; E78.5 Hyperlipidemia, unspecified; K21.9 Gastro-esophageal reflux disease without esophagitis; Z79.84 Long term (current) use of oral hypoglycemic drugs; Z86.718 Personal history of other venous thrombosis and embolism; Z79.01 Long term (current) use of anticoagulants
CPT/HCPCS: 36415; 80053; 80177; 82962; 85027; 86780; C9803-CS; U0003; U0005

== ENCOUNTER 2022-04-05 19:30 | Inpatient (IN) | payer OTHER ==
[2022-04-05 20:25] VITALS: BMI 32.5
[2022-04-05] MEDS ORDERED: MAG HYDROX/AL HYDROX/SIMETH 30 ML UNIT-DOSE CUP PO PRN (21:01)
[2022-04-05] MEDS ORDERED: NALOXONE HCL (KLOXXADO) 8 MG SPRAY NS PRN (21:01)
[2022-04-05] MEDS ORDERED: METHOCARBAMOL 500 MG TABLET PO PRN (21:01)
[2022-04-05] MEDS ORDERED: P-EPHED 60MG/TRIPROLIDI 2.5MG TABLET PO PRN (21:01)
[2022-04-05] MEDS ORDERED: MAGNESIUM CITRATE 300 ML BOTTLE PO PRN (21:01)
[2022-04-05] MEDS ORDERED: hydrOXYzine PAMOATE 25 MG CAPSULE (FP) PO PRN (21:01)
[2022-04-05] MEDS ORDERED: LOPERAMIDE HCL 2 MG CAPSULE PO PRN (21:01)
[2022-04-05] MEDS ORDERED: guaiFENesin 200 MG/10 ML 10 ML UNIT-DOSE CUPS PO PRN (21:01)
[2022-04-05] MEDS ORDERED: DICYCLOMINE HCL 10 MG CAPSULE PO PRN (21:01)
[2022-04-05] MEDS ORDERED: MAGNESIUM HYDROX 2400MG/30ML ORAL SUSPENSION 30 ML CUP PO PRN (21:01)
[2022-04-05] MEDS ORDERED: ACETAMINOPHEN 325 MG TABLET (FP) PO PRN ×2 (21:01)
[2022-04-05] MEDS ORDERED: BENZOCAINE/MENTHOL (CHLORASEPTIC ) LOZENGE MM PRN (21:01)
[2022-04-05] MEDS ORDERED: amLODIPine BESYLATE 5 MG TABLET (FP) PO ONE (21:06)
[2022-04-05] MEDS: THIAMINE HCL 100 MG TABLET (FP) PO SCH (23:39)
[2022-04-05] MEDS: levETIRAcetam 500 MG TABLET (FP) PO SCH (23:39)
[2022-04-05] MEDS: APIXABAN 5 MG TABLET PO SCH (23:39)
[2022-04-05] MEDS: MELATONIN 5 MG TABLETS PO SCH (23:40)
[2022-04-05] MEDS: BUPRENORPHINE/NALOXONE 8 MG/2 MG FILM PACKET SL SCH (23:40)
[2022-04-06] MEDS ORDERED: LEVOTHYROXINE NA 50 MCG TABLET (FP) PO SCH (07:00)
[2022-04-06] MEDS: predniSONE 5 MG TABLET (UD) PO SCH (10:15)
[2022-04-06] MEDS: FAMOTIDINE 20 MG TABLET PO SCH (10:15)
[2022-04-06] MEDS: PRENATAL VITAMINS W/ FOLIC ACID TABLET (FP) PO SCH (10:15)
[2022-04-06] MEDS: SULFAMETHOXAZOLE/TRIMETHOPRIM 800MG/160MG D.S. TABLET PO SCH (10:15)
[2022-04-06] MEDS: BICTEGRAV/EMTRICIT/TENOFOV (BIKTARVY) 50-200-25 MG TABLET PO SCH (10:15)
[2022-04-06] MEDS: levETIRAcetam 500 MG TABLET (FP) PO SCH ×2 (10:15→22:15)
[2022-04-06] MEDS: amLODIPine BESYLATE 10 MG TABLET (FP) PO SCH (10:15)
[2022-04-06] MEDS: APIXABAN 5 MG TABLET PO SCH ×2 (10:15→22:16)
[2022-04-06] MEDS: BUPRENORPHINE/NALOXONE 8 MG/2 MG FILM PACKET SL SCH ×2 (10:15→22:15)
[2022-04-06] MEDS: LEVOTHYROXINE NA 25 MCG TABLET (FP) PO SCH (11:21)
[2022-04-06] MEDS: LACTULOSE 20 GM/30 ML UDC (FOR ORAL USE ONLY) PO SCH ×3 (13:09→22:17)
[2022-04-06] MEDS: QUEtiapine FUMARATE 50 MG TABLET PO SCH (22:15)
[2022-04-06] MEDS: THIAMINE HCL 100 MG TABLET (FP) PO SCH (22:16)
[2022-04-06] MEDS: MELATONIN 5 MG TABLETS PO SCH (22:16)
[2022-04-07] MEDS: LEVOTHYROXINE NA 25 MCG TABLET (FP) PO SCH (06:53)
[2022-04-07] MEDS: BUPRENORPHINE/NALOXONE 8 MG/2 MG FILM PACKET SL SCH ×2 (10:28→22:35)
[2022-04-07] MEDS: PRENATAL VITAMINS W/ FOLIC ACID TABLET (FP) PO SCH (10:28)
[2022-04-07] MEDS: LACTULOSE 20 GM/30 ML UDC (FOR ORAL USE ONLY) PO SCH ×4 (10:29→22:35)
[2022-04-07] MEDS: APIXABAN 5 MG TABLET PO SCH ×2 (10:29→22:35)
[2022-04-07] MEDS: BICTEGRAV/EMTRICIT/TENOFOV (BIKTARVY) 50-200-25 MG TABLET PO SCH (10:29)
[2022-04-07] MEDS: predniSONE 5 MG TABLET (UD) PO SCH (10:29)
[2022-04-07] MEDS: levETIRAcetam 500 MG TABLET (FP) PO SCH ×2 (10:29→22:35)
[2022-04-07] MEDS: amLODIPine BESYLATE 10 MG TABLET (FP) PO SCH (10:29)
[2022-04-07] MEDS: SULFAMETHOXAZOLE/TRIMETHOPRIM 800MG/160MG D.S. TABLET PO SCH (10:29)
[2022-04-07] MEDS: FAMOTIDINE 20 MG TABLET PO SCH (10:30)
[2022-04-07] MEDS: ONDANSETRON *ODT* 4 MG TABLET SL PRN ×2 (13:38→22:38)
[2022-04-07] MEDS: THIAMINE HCL 100 MG TABLET (FP) PO SCH (22:34)
[2022-04-07] MEDS: MELATONIN 5 MG TABLETS PO SCH (22:34)
[2022-04-07] MEDS: QUEtiapine FUMARATE 50 MG TABLET PO SCH (22:35)
[2022-04-08] MEDS: LEVOTHYROXINE NA 25 MCG TABLET (FP) PO SCH (06:13)
[2022-04-08] MEDS: BUPRENORPHINE/NALOXONE 8 MG/2 MG FILM PACKET SL SCH (09:45)
[2022-04-08] MEDS: FAMOTIDINE 20 MG TABLET PO SCH (09:46)
[2022-04-08] MEDS: BICTEGRAV/EMTRICIT/TENOFOV (BIKTARVY) 50-200-25 MG TABLET PO SCH (09:46)
[2022-04-08] MEDS: PRENATAL VITAMINS W/ FOLIC ACID TABLET (FP) PO SCH (09:46)
[2022-04-08] MEDS: SULFAMETHOXAZOLE/TRIMETHOPRIM 800MG/160MG D.S. TABLET PO SCH (09:47)
[2022-04-08] MEDS: amLODIPine BESYLATE 10 MG TABLET (FP) PO SCH (09:47)
[2022-04-08] MEDS: predniSONE 5 MG TABLET (UD) PO SCH (09:47)
[2022-04-08] MEDS: LACTULOSE 20 GM/30 ML UDC (FOR ORAL USE ONLY) PO SCH (09:47)
[2022-04-08] MEDS: levETIRAcetam 500 MG TABLET (FP) PO SCH (09:47)
[2022-04-08] MEDS: APIXABAN 5 MG TABLET PO SCH (09:47)
[2022-04-08] MEDS: ONDANSETRON *ODT* 4 MG TABLET SL PRN (09:47)
[2022-04-08 09:50] VITALS: BP 148/84; PULSE 84; RESP 16; TEMP 98.1
== END 2022-04-08 13:13 | disposition home or self-care (01) | DRG 773 ==
LOC: YASAS 19:30 → UNDOADMIN 20:56 → Y6N 20:56
PROVIDERS: ADMIT Allergy & Immunology; ATTEND Surgery
PROC: HZ2ZZZZ Detoxification Services for Substance Abuse Treatment (ICD-10-PCS; principal; 2022-04-05)
DX: F10.230 Alcohol dependence with withdrawal, uncomplicated (principal); F11.20 Opioid dependence, uncomplicated; F14.20 Cocaine dependence, uncomplicated; F17.210 Nicotine dependence, cigarettes, uncomplicated; F19.282 Other psychoactive substance dependence with psychoactive substance-induced sleep disorder; Z21 Asymptomatic human immunodeficiency virus [HIV] infection status; E72.20 Disorder of urea cycle metabolism, unspecified; G62.9 Polyneuropathy, unspecified; E03.9 Hypothyroidism, unspecified; I10 Essential (primary) hypertension; K21.9 Gastro-esophageal reflux disease without esophagitis; J45.909 Unspecified asthma, uncomplicated; Z86.718 Personal history of other venous thrombosis and embolism; Z79.01 Long term (current) use of anticoagulants
CPT/HCPCS: 82140; 82962; C9803-CS; Q0162; U0003; U0005

== ENCOUNTER 2024-08-26 16:16 | Inpatient (IN) | payer OTHER ==
[2024-08-26 16:52] VITALS: BMI 33.2
[2024-08-26] MEDS ORDERED: NALOXONE (NARCAN) HCL 4 MG/0.1 ML SPRAY NS PRN (17:23)
[2024-08-26] MEDS ORDERED: NICOTINE POLACRILEX 2 MG LOZENGE BC PRN (17:23)
[2024-08-26] MEDS ORDERED: IBUPROFEN 400 MG TABLET (FP) PO PRN (17:23)
[2024-08-26] MEDS ORDERED: BISMUTH SUBSALICYLATE 524 MG/30 ML PO PRN (17:23)
[2024-08-26] MEDS ORDERED: MAGNESIUM HYDROX 2400MG/30ML ORAL SUSPENSION 30 ML CUP PO PRN (17:23)
[2024-08-26] MEDS ORDERED: ACETAMINOPHEN 325 MG TABLET (FP) PO PRN (17:23)
[2024-08-26] MEDS ORDERED: IBUPROFEN 600 MG TABLET (FP) PO PRN (17:23)
[2024-08-26] MEDS ORDERED: POLYETHYLENE GLYCOL (HEALTHYLAX) 3350 17 GM PACKET PO PRN (17:23)
[2024-08-26] MEDS ORDERED: DICYCLOMINE HCL 10 MG CAPSULE PO PRN (17:23)
[2024-08-26] MEDS ORDERED: guaiFENesin 600 MG TABLET.ER (FP) PO PRN (17:23)
[2024-08-26] MEDS ORDERED: ONDANSETRON *ODT* 4 MG TABLET SL PRN (17:23)
[2024-08-26] MEDS ORDERED: MAG HYDROX/AL HYDROX/SIMETH 30 ML UNIT-DOSE CUP PO PRN (17:23)
[2024-08-26] MEDS ORDERED: LOPERAMIDE HCL 2 MG CAPSULE PO PRN (17:23)
[2024-08-26] MEDS ORDERED: NICOTINE POLACRILEX 2 MG GUM BUC PRN (17:23)
[2024-08-26] MEDS ORDERED: ALBUTEROL SO4 HFA INHALER IH PRN (21:09)
[2024-08-26] MEDS: APIXABAN 5 MG TABLET PO SCH (22:39)
[2024-08-26] MEDS: ATORVASTATIN CA 80 MG TABLET (FP) PO SCH (22:39)
[2024-08-26] MEDS: MELATONIN 5 MG TABLETS PO SCH (22:39)
[2024-08-26] MEDS: THIAMINE 100 MG TABLET PO SCH (22:39)
[2024-08-26] MEDS: levETIRAcetam 500 MG TABLET (FP) PO SCH (22:39)
[2024-08-26] MEDS: METHOCARBAMOL 500 MG TABLET PO PRN (22:41)
[2024-08-26] MEDS: diazePAM 5 MG TABLET PO SCH (22:41)
[2024-08-26] MEDS: BUDESONIDE/FORMETEROL FUMARATE 80/4.5 mcg INHALER IH SCH (22:52)
[2024-08-27] MEDS: LEVOTHYROXINE NA 50 MCG TABLET (FP) PO SCH (06:07)
[2024-08-27] MEDS: BICTEGRAV/EMTRICIT/TENOFOV (BIKTARVY) 50-200-25 MG TABLET PO SCH (07:41)
[2024-08-27] MEDS: FAMOTIDINE 20 MG TABLET PO SCH (10:41)
[2024-08-27] MEDS: ASPIRIN COATED 81 MG TABLET.EC PO SCH (10:41)
[2024-08-27] MEDS: LOSARTAN POTASSIUM 25 MG TABLET PO SCH (10:41)
[2024-08-27] MEDS: PRENATAL VITAMINS W/ FOLIC ACID TABLET (FP) PO SCH (10:41)
[2024-08-27] MEDS: EMPAGLIFLOZIN (JARDIANCE) 10 MG TABLET PO SCH (10:57)
[2024-08-27 11:07] LABS: HEMATOCRIT 41.8 % (35.4-49); HEMOGLOBIN 13.5 GM/dL (11.7-16.9); MCH 25.1 pg (25.7-33.7); MCHC 32.4 g/dl (32.0-35.9); MEAN CELL VOLUME 77.7 fl (80-96); MEAN PLT VOLUME 8.4 fl (7.5-11.1); PLATELET COUNT 170 10^3/uL (134-434); RBC 5.38 M/mm3 (4.00-5.60); RDW 15.4 % (11.9-15.9); WHITE BLOOD COUNT 4.6 K/mm3 (4.0-10.0)
[2024-08-27 11:16] LABS: CHLORIDE 104 mmol/L (98-107); POTASSIUM 3.8 mmol/L (3.5-5.1); SODIUM 138 mmol/L (136-145)
[2024-08-27 11:19] LABS: ALBUMIN 3.1 g/dl (3.4-5.0)
[2024-08-27 11:20] LABS: ANION GAP 7 mmol/L (4-13); CO2 27 mmol/L (21-32); GLUCOSE,RANDOM 101 mg/dL (74-106)
[2024-08-27 11:22] LABS: CREATININE 1.2 mg/dL (0.55-1.3); SGOT/AST 26 U/L (15-37); SGPT/ALT 39 U/L (13-61)
[2024-08-27 11:24] LABS: BILIRUBIN,TOTAL 0.8 mg/dL (0.2-1)
[2024-08-27 11:25] LABS: ALK PHOS 76 U/L (45-117)
[2024-08-27] MEDS: FERROUS SO4 325 MG TABLET (FP) PO SCH (14:35)
[2024-08-27] MEDS: P-EPHED 60MG/TRIPROLIDI 2.5MG TABLET PO PRN (17:51)
[2024-08-28] MEDS: diazePAM 5 MG TABLET PO SCH (06:39)
[2024-08-28] MEDS: ARIPiprazole 10 MG TABLET PO SCH (10:58)
[2024-08-28] MEDS: BENZOCAINE/MENTHOL (CHLORASEPTIC ) LOZENGE MM PRN (14:11)
[2024-08-28] MEDS: BENZONATATE 200 MG CAPSULE PO PRN (14:12)
[2024-08-29] MEDS: diazePAM 5 MG TABLET PO PRN (02:07)
[2024-08-29 05:57] VITALS: PULSE 79
[2024-08-29] MEDS: diazePAM 5 MG TABLET PO ONE (06:16)
[2024-08-29] MEDS: LEVOTHYROXINE NA 25 MCG TABLET (FP) PO SCH (06:18)
[2024-08-29 13:38] VITALS: BP 144/86; RESP 16; TEMP 98.4
== END 2024-08-29 12:39 | disposition home or self-care (01) | DRG 775 ==
LOC: YASAS 16:16 → Y3N 19:55
PROVIDERS: ADMIT Allergy & Immunology; ATTEND Allergy & Immunology
PROC: HZ2ZZZZ Detoxification Services for Substance Abuse Treatment (ICD-10-PCS; principal; 2024-08-26)
DX: F10.230 Alcohol dependence with withdrawal, uncomplicated (principal); F13.20 Sedative, hypnotic or anxiolytic dependence, uncomplicated; F17.210 Nicotine dependence, cigarettes, uncomplicated; Z21 Asymptomatic human immunodeficiency virus [HIV] infection status; D64.9 Anemia, unspecified; B33.8 Other specified viral diseases; B97.4 Respiratory syncytial virus as the cause of diseases classified elsewhere; I11.0 Hypertensive heart disease with heart failure; I50.9 Heart failure, unspecified; E78.5 Hyperlipidemia, unspecified; E11.9 Type 2 diabetes mellitus without complications; Z79.84 Long term (current) use of oral hypoglycemic drugs; J45.909 Unspecified asthma, uncomplicated; K21.9 Gastro-esophageal reflux disease without esophagitis; G40.909 Epilepsy, unspecified, not intractable, without status epilepticus; Z86.718 Personal history of other venous thrombosis and embolism; Z79.01 Long term (current) use of anticoagulants
CPT/HCPCS: 0241U-QW; 36415; 80053; 80305; 80307; 85027; 86780; 93005; 93010